=== PATIENT | female | born 1985 | race American Indian/Alaskan Native ===

== ENCOUNTER 2021-01-27 10:39 | Emergency (ER) | payer MEDICAID ==
[2021-01-27] MEDS ORDERED: FAMOTIDINE 20 MG TAB PO ONE (10:56)
[2021-01-27] MEDS ORDERED: LIDOCAINE VISCOUS 2% 15 ML ORAL LIQD PO ONE (10:56)
[2021-01-27] MEDS ORDERED: ALUM-MAG HYDROXIDE-SIMETHICONE 200-200-20MG/5ML ORAL LIQD 30 ML PO ONE (10:56)
--- NOTE | 2021-01-27 10:56 | Emergency Department Report ---
ED Abdominal Pain HPI - General Stated Complaint: CHEST PAIN/HEARTBURN PUI?: No Time Seen by Provider: 01/27/21 10:56 Source: patient Mode of arrival: Ambulatory Limitations: No Limitations - History of Present Illness Initial Comments: 35 yo AA comes to ER with epigastric burning. She is new to area and has not seen her PCP. 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 She is requesting local referrals MD Complaint: abdominal pain -: Sudden Location: epigastric Radiation: none Migration to: no migration Severity: moderate Severity scale (0 -10): 4 Quality: burning Consistency: intermittent Improves With: nothing Worsens With: other Associated Symptoms: denies other symptoms - Related Data Previous Rx's Medication Instructions Recorded Last Taken Type Famotidine [Pepcid] 40 mg PO DAILY #30 tablet 01/27/21 Unknown Rx Allergies Allergy/AdvReac Type Severity Reaction Status Date / Time No Known Allergies Allergy Verified 01/27/21 10:55 ED Review of Systems ROS: Stated complaint: CHEST PAIN/HEARTBURN Other details as noted in HPI Comment: All other systems reviewed and negative ED Past Medical Hx - Past Medical History Previous Medical History?: Yes Hx GERD: Yes - Surgical History Past Surgical History?: No - Family History Family history: no significant - Social History Smoking Status: Never Smoker Substance Use Type: None - Medications Home Medications: Home Medications Medication Instructions Recorded Confirmed Last Taken Type Famotidine [Pepcid] 40 mg PO DAILY #30 tablet 01/27/21 Unknown Rx ED Physical Exam - General Limitations: No Limitations General appearance: alert, in no apparent distress - Head Head exam: Present: atraumatic, normocephalic - Eye Eye exam: Present: normal appearance - ENT ENT exam: Present: mucous membranes moist - Neck Neck exam: Present: normal inspection - Respiratory Respiratory exam: Present: normal lung sounds bilaterally. Absent: respiratory distress - Cardiovascular Cardiovascular Exam: Present: regular rate, normal rhythm. Absent: systolic murmur, diastolic murmur, rubs, gallop - GI/Abdominal GI/Abdominal exam: Present: soft, normal bowel sounds. Absent: distended, tenderness, guarding, rebound, rigid, diminished bowel sounds, hyperactive bowel sounds, hypoactive bowel sounds, organomegaly, mass, bruit, pulsatile mass, hernia - Extremities Exam Extremities exam: Present: normal inspection - Back Exam Back exam: Present: normal inspection - Neurological Exam Neurological exam: Present: alert, oriented X3 - Psychiatric Psychiatric exam: Present: normal affect, normal mood - Skin Skin exam: Present: warm, dry, intact, normal color. Absent: rash ED Course Vital Signs 01/27/21 10:55 Temperature 99 F Pulse Rate 83 Respiratory 16 Rate Blood Pressure 166/79 [Left] O2 Sat by Pulse 99 Oximetry ED Medical Decision Making - Medical Decision Making Vital Signs 01/27/21 10:55 Temperature 99 F Pulse Rate 83 Respiratory 16 Rate Blood Pressure 166/79 [Left] O2 Sat by Pulse 99 Oximetry no abd pain no n/v/d/c no fever or chills GI cocktail with relief abd exam wnl dc home with pepcid rx and pcp/GI follow up. pt verbalizes understanding of dc plan of care including diet, activity, follow up and meds - Differential Diagnosis gerd; choleys. Critical care attestation.: If time is entered above; I have spent that time in minutes in the direct care of this critically ill patient, excluding procedure time. ED Disposition Clinical Impression: GERD (gastroesophageal reflux disease), Epigastric pain Disposition: HOME / SELF CARE / HOMELESS Is pt being admited?: No Does the pt Need Aspirin: No Condition: Stable Instructions: Gastroesophageal Reflux Disease, Adult, [id number] Additional Instructions: bland diet and advance as tolerate banana, rice, applesauce toast today stay well hydrated with water med as ordered today follow up with pcp and GI MD referrals below Prescriptions: Famotidine [Pepcid] 40 mg PO DAILY #30 tablet Referrals: MORGAN GIPSON MD [Staff Physician] - 3-5 Days MARIBEL HAMILTON MD [Staff Physician] - 3-5 Days Forms: Work/School Release Form(ED) Time of Disposition: 11:27
[2021-01-27 10:58] VITALS: BP 166/79
== END 2021-01-27 11:51 | disposition home or self-care (01) ==
LOC: ED 10:39
DX: K21.9 Gastro-esophageal reflux disease without esophagitis (principal); R10.13 Epigastric pain
CPT/HCPCS: 99282